=== PATIENT | female | born 1980 | race Caucasian/White ===

== ENCOUNTER → 2018-07-24 | Outpatient (REF) | payer OTHER ==
[~2018-07-24] MED LIST: COLA100C5 PO; IBUP-1114 PO; MAPA500T2 PO; NUPE1OIN2 TOP; PRENTAB9 PO
[2018-07-25 15:05] LABS: HPV HYBRID CAPTURE II Negative (Negative)
== END ==
LOC: M LAB REF 13:07
PROVIDERS: ATTEND Obstetrics & Gynecology
DX: Z12.4 Encounter for screening for malignant neoplasm of cervix (principal)
CPT/HCPCS: 87624; G0123

== ENCOUNTER → 2018-10-07 | Outpatient (CLI) | payer OTHER ==
[2018-10-07 11:23] LABS: BASO # 0.1 10^3/uL (0.0-0.2); BASO % 0.5 % (0.0-1.0); EOS # 0.1 10^3/uL (0.0-0.50); EOS % 0.7 % (0.0-3.0); LYMPH # 2.6 10^3/uL (1.5-4.5); LYMPH % 16.4 % (24.0-44.0); MEAN CORPUSCULAR HEMOGLOBIN 30.7 pg (27.0-33.0); MEAN CORPUSCULAR HGB CONC 33.3 g/dl (32.0-36.5); MEAN CORPUSCULAR VOLUME 92.1 fl (80.0-96.0); MONO # 0.9 10^3/uL (0.0-0.8); NEUTROPHILS # 11.9 10^3/uL (1.8-7.7); NEUTROPHILS % 76.1 % (36.0-66.0); PLATELET COUNT, AUTOMATED 427 10^3/uL (150-450); RED BLOOD COUNT 4.56 10^6/uL (4.00-5.40); WHITE BLOOD COUNT 15.7 10^3/uL (4.0-10.0)
[2018-10-07 11:41] LABS: HEMOGLOBIN A1c 5.5 %
== END ==
LOC: M LRY 09:28
PROVIDERS: ATTEND Physician Assistant
DX: Z13.29 Encounter for screening for other suspected endocrine disorder (principal)

== ENCOUNTER → 2023-02-23 | Outpatient (CLI) | payer OTHER | LOC: M WHC 09:49 | PROVIDERS: ATTEND Family Medicine | DX: Z12.31 Encounter for screening mammogram for malignant neoplasm of breast (principal) ==

== ENCOUNTER → 2024-06-06 | Outpatient (CLI) | payer OTHER | LOC: M WHC 09:00 | PROVIDERS: ATTEND Internal Medicine | DX: Z12.31 Encounter for screening mammogram for malignant neoplasm of breast (principal) ==

== ENCOUNTER 2024-08-20 22:13 | Emergency (ER) | payer OTHER ==
[~2024-08-20] VITALS: Ht 160 cm; Wt 90.9 kg
[2024-08-20] MEDS ORDERED: ELIQ5TAB (22:26)
[2024-08-20 22:54] LABS: BASO # 0.1 10^3/uL (0.0-0.2); BASO % 0.5 % (0.0-1.0); EOS % 0.3 % (0.0-3.0); HEMATOCRIT 44.9 % (36.0-47.0); HEMOGLOBIN 15.6 g/dl (12.0-15.5); LYMPH # 2.9 10^3/uL (1.5-5.0); LYMPH % 19.3 % (24.0-44.0); MEAN CORPUSCULAR HEMOGLOBIN 31.8 pg (27.0-33.0); MEAN CORPUSCULAR HGB CONC 34.7 g/dl (32.0-36.5); MEAN CORPUSCULAR VOLUME 91.6 fl (80.0-96.0); MONO # 1.1 10^3/uL (0.0-0.8); MONO % 7.2 % (2.0-8.0); NEUTROPHILS # 11.1 10^3/uL (1.5-8.5); NEUTROPHILS % 72.4 % (36.0-66.0); PLATELET COUNT, AUTOMATED 403 10^3/uL (150-450); WHITE BLOOD COUNT 15.2 10^3/uL (4.0-10.0)
[2024-08-20] MEDS: METOPROLOL 5 MG/5 ML VIAL IV SCH (23:04)
[2024-08-20 23:18] LABS: BLOOD UREA NITROGEN 14 MG/DL (9-23); CALCIUM LEVEL 9.9 MG/DL (8.5-10.1); CARBON DIOXIDE LEVEL 24 MMOL/L (20-31); CHLORIDE LEVEL 104 MMOL/L (98-107); CREATININE FOR GFR 0.67 MG/DL (0.55-1.30); GLOMERULAR FILTRATION RATE > 60.0 (>58); GLUCOSE, FASTING 101 MG/DL (60-100); MAGNESIUM LEVEL 2.1 MG/DL (1.8-2.4); POTASSIUM SERUM 3.6 MMOL/L (3.5-5.1); SODIUM LEVEL 140 MMOL/L (136-145)
[2024-08-20 23:31] LABS: CK-MB VALUE MASS < 1.0 NG/ML (<3.6); CPK CREATINE PHOSPHOKINASE 75 U/L (34-145); MB/CK RELATIVE INDEX 1.33 (< OR =4)
[2024-08-21 00:11] LABS: THYROID STIMULATING HORMONE 6.355 uIU/ML (0.55-4.78)
[2024-08-21 00:57] LABS: CK-MB VALUE MASS < 1.0 NG/ML (<3.6)
[2024-08-21 01:01] VITALS: BP 101/122
[2024-08-21 01:01] LABS: CPK CREATINE PHOSPHOKINASE 66 U/L (34-145); MB/CK RELATIVE INDEX 1.51 (< OR =4)
[2024-08-21] MEDS: METOPROLOL SUCC (TopROL XL) 50MG **XL** TAB PO ONE (01:01)
[2024-08-21 01:50] VITALS: BP 122/62; TEMP 97.4; O2SAT 99
== END 2024-08-21 02:05 | disposition home or self-care (01) ==
LOC: M ED 22:13
DX: I48.91 Unspecified atrial fibrillation (principal); E78.5 Hyperlipidemia, unspecified; Z79.01 Long term (current) use of anticoagulants; Z79.1 Long term (current) use of non-steroidal anti-inflammatories (NSAID); Z79.899 Other long term (current) drug therapy

== ENCOUNTER 2024-11-21 07:14 | Day surgery (SDC) | payer OTHER ==
[~2024-11-21] VITALS: Ht 160 cm; Wt 83.6 kg
[~2024-11-21 07:14] MED LIST changes: +AMIT10TA7 PO; +BUSP10TA PO; +CALC-263 PO; +ELIQ5TAB PO; +JARD1TAB PO; +METO1TAB7 PO; +ROSU10TA61 PO; +THERTAB52 PO; +TIRZ5PEN3 SC
[2024-11-21] MEDS ORDERED: ROCURONIUM BROMIDE 50MG/5ML VIAL As Ordered ONE (08:11)
[2024-11-21] MEDS ORDERED: LIDOCAINE 2% 100MG/5ML SDV (FOR ANES.) As Ordered ONE (08:11)
[2024-11-21] MEDS ORDERED: propofoL 200 MG/20 ML VIAL As Ordered ONE (08:11)
[2024-11-21] MEDS ORDERED: fentaNYL 100 MCG/2 ML INJECTION As Ordered ONE (08:12)
[2024-11-21] MEDS ORDERED: MIDAZOLAM INJ 2MG/2ML VIAL As Ordered ONE (08:12)
[2024-11-21] MEDS ORDERED: LR 1,000 ML IV SCH (08:30)
[2024-11-21] MEDS ORDERED: ONDANSETRON 4MG 2ML VIAL As Ordered ONE (08:43)
[2024-11-21] MEDS ORDERED: ACETAMINOPHEN 1000MG/100ML IV BAG As Ordered ONE (08:44)
[2024-11-21] MEDS ORDERED: PHENYLephrine 500MCG 5ML (100MCG/ML) SYRINGE As Ordered ONE (08:46)
[2024-11-21] MEDS ORDERED: KETOROLAC 30 MG/ML 1ML VIAL As Ordered ONE (09:07)
[2024-11-21] MEDS ORDERED: SUGAMMADEX SODIUM 500 MG/5 ML VIAL As Ordered ONE (09:07)
[2024-11-21] MEDS ORDERED: fentaNYL 100 MCG/2 ML INJECTION IV PRN (09:45)
[2024-11-21] MEDS: ONDANSETRON 4MG 2ML VIAL IV PRN (10:03)
[2024-11-21] MEDS: MORPHINE 2 MG/ML 1ML VIAL IV PRN (10:03)
[2024-11-21] MEDS: oxyCODONE 5MG TAB PO PRN (10:22)
[2024-11-21 11:20] VITALS: BP 122/73; TEMP 97.3; O2SAT 98
== END 2024-11-21 11:41 | disposition home or self-care (01) ==
LOC: M SDC 07:14
PROVIDERS: ATTEND Surgery
DX: K80.10 Calculus of gallbladder with chronic cholecystitis without obstruction (principal); I48.91 Unspecified atrial fibrillation; K21.9 Gastro-esophageal reflux disease without esophagitis; F41.9 Anxiety disorder, unspecified; F32.A Depression, unspecified; Z87.891 Personal history of nicotine dependence; Z79.01 Long term (current) use of anticoagulants; Z79.899 Other long term (current) drug therapy
CPT/HCPCS: 47562; 81025; 88304; J0131; J0665; J1100; J1885; J2250; J2371; J2405; J3010; S2900

== ENCOUNTER → 2025-06-15 | Outpatient (CLI) | payer OTHER ==
[~2025-06-15] MED LIST changes: +AMIT10TA11 PO; -AMIT10TA7 PO; +IBUP200C25 PO; +METO1TAB32 PO; -ROSU10TA61 PO; +ROSU10TA90 PO; +[UNRECOGNIZED DRUG - OTHER] PO
== END ==
LOC: M WHC 10:21
PROVIDERS: ATTEND Internal Medicine
DX: Z12.31 Encounter for screening mammogram for malignant neoplasm of breast (principal); R92.313 Mammographic fatty tissue density, bilateral breasts